=== PATIENT | male | born 1995 ===

== ENCOUNTER 2020-03-25 22:18 | Outpatient (REF) | payer OTHER, SELFPAY ==
[2020-03-31 00:10] LABS: SARS-CoV-2 RNA Undetected (Undetected); SARS-CoV-2 Specimen Source Nasal
== END 2020-03-25 22:38 ==
LOC: NCHCN 22:18
PROVIDERS: PCP Internal Medicine; Visit Provider Nurse Practitioner Family
DX: Z20.828 Contact with and (suspected) exposure to other viral communicable diseases (principal)
CPT/HCPCS: U0003